=== PATIENT | male | born 1995 | race Caucasian/White ===

== ENCOUNTER 2019-02-15 20:55 | Emergency (ER) | payer SELFPAY ==
[~2019-02-15] VITALS: Ht 175.3 cm; Wt 65.8 kg
[2019-02-15 21:15] VITALS: BP 109/77
--- NOTE | 2019-02-15 21:20 | NUR ---
PT AMBULATED W/ STEADY GATE BACK TO LOBBY, VSS, PT ACTING APPROPRAITLY. URINE COLLECTED.
--- NOTE | 2019-02-15 21:42 | NUR ---
PT AMBULATED TO BED 6
--- NOTE | 2019-02-15 21:51 | NUR ---
23 Y MALE BIB SELF C/O SUDDEN ONSET OF RIGHT SIDED ABD PAIN, RADIATES TO RIGHT SIDE OF BACK; LEFT EAR PAIN; PT STATES HE FEELS LIKE THERE IS WAX OR A ROCK IN HIS EAR. 7/10 STABBING PAIN, MOTRIN AT HOME W/O RELIEF. -N/V. [id number]. VSS AT THIS TIME.BED IS DOWN, LOCKED, ERMD NOTIFIED. PMH: ANXIETY RX: ZANAX
--- NOTE | 2019-02-15 23:00 | NUR ---
PATIENT LEFT WITHOUT BEING SEEN BY DR. CASTRO. NO FURTHER CARE PROVIDED FOR PATIENT.
[2019-02-15 23:06] VITALS: BP 111/78
== END 2019-02-15 23:00 | disposition left against medical advice (07) ==
LOC: MED 20:55
DX: H92.01 Otalgia, right ear (principal); R10.9 Unspecified abdominal pain; Z53.21 Procedure and treatment not carried out due to patient leaving prior to being seen by health care provider

== ENCOUNTER 2022-01-06 01:58 | Emergency (ER) | payer SELFPAY ==
[~2022-01-06] VITALS: Ht 175.3 cm; Wt 59.0 kg
[2022-01-06 02:09] VITALS: BP 108/45
--- NOTE | 2022-01-06 02:16 | NUR ---
AMBULATORY TO BED 11.
[2022-01-06] MEDS ORDERED: KETOROLAC 60 MG/2 ML VIAL IM ONE (02:45)
--- NOTE | 2022-01-06 03:26 | NUR ---
PT AMBULATED TO THE VENDING AFTER CT AND WENT BACK TO THE BED. NO SIGNS OF DISCOMFORT.
[2022-01-06] MEDS ORDERED: NAPR-54 PO (04:18)
--- NOTE | 2022-01-06 04:28 | NUR ---
DISCHARGE INSTRUCTIONS GIVEN BY DR. CASTRO. PT AMBULATED OUT OF ER WITHOUT SIGNS OF DISTRESS.
== END 2022-01-06 04:28 | disposition home or self-care (01) ==
LOC: MED 01:58
DX: S13.4XXA Sprain of ligaments of cervical spine, initial encounter (principal); M54.30 Sciatica, unspecified side; F17.210 Nicotine dependence, cigarettes, uncomplicated; Z71.6 Tobacco abuse counseling; Z79.899 Other long term (current) drug therapy; V89.2XXA Person injured in unspecified motor-vehicle accident, traffic, initial encounter; Y93.89 Activity, other specified; Y92.89 Other specified places as the place of occurrence of the external cause; Y99.8 Other external cause status
CPT/HCPCS: 72131; 96372; 99284; J1885